=== PATIENT | male | born 1945 | race Caucasian/White ===

== ENCOUNTER 2019-03-13 11:55 | Emergency (ER) | payer MEDICARE, OTHER ==
[~2019-03-13] VITALS: Ht 175.3 cm; Wt 113.6 kg
[~2019-03-13 11:55] MED LIST: AMLO2.5T2 PO; ASPI-611 PO; ATOR40TA72 PO; DICL75TA5 PO; GLIM1TAB3 PO; HYDR-4353 PO; METF-438 PO; METO25TA6 PO; OMEP20TA5 PO; TAMS0.4C32 PO; TEST200V10 IM
[2019-03-13 12:57] LABS: BASOPHILS % (AUTO) 0.7 % (0-1); EOSINOPHILS # (AUTO) 0.2 X10'3 (0-0.9); EOSINOPHILS % (AUTO) 3.6 % (0-6); HEMOGLOBIN 15.4 g/dl (14.0-17.9); LYMPHOCYTES # (AUTO) 1.3 X10'3 (1.1-4.8); MEAN CORPUSCULAR HEMOGLOBIN 31.6 PG (27.0-31.0); MEAN CORPUSCULAR HGB CONC 33.5 g/dL (33.0-36.5); MEAN CORPUSCULAR VOLUME 94.3 FL (78-98); MEAN PLATELET VOLUME 7.6 FL (7.4-10.4); MONOCYTES # (AUTO) 0.5 X10'3 (0-0.9); MONOCYTES % (AUTO) 8.8 % (2-12); NEUTROPHILS # (AUTO) 3.4 X10'3 (1.8-7.7); NEUTROPHILS % (AUTO) 62.9 % (42-75); PLATELET COUNT 183 X10'3 (140-440); RED BLOOD COUNT 4.88 X10'6 (4.70-6.10); RED CELL DISTRIBUTION WIDTH 17.1 % (11.5-14.5); WHITE BLOOD COUNT 5.4 X10'3 (4.5-11.0)
[2019-03-13 13:08] LABS: PARTIAL THROMBOPLASTIN TIME 27 SECONDS (22-32)
[2019-03-13 13:16] LABS: ALANINE AMINOTRANSFERASE 44 U/L (12-78); ALBUMIN 3.7 G/DL (3.4-5.0); ALKALINE PHOSPHATASE 65 IU/L (46-116); ANION GAP 5 (8-16); ASPARTATE AMINO TRANSFERASE 25 U/L (10-37); BILIRUBIN,TOTAL 0.4 MG/DL (0.1-1.0); BLOOD UREA NITROGEN 19 MG/DL (7-18); BUN/CREATININE RATIO 14.8 (5.4-32.0); CALCIUM 9.3 MG/DL (8.5-10.1); CHLORIDE 107 MMOL/L (99-107); CREATININE 1.28 MG/DL (0.60-1.10); GLUCOSE 211 MG/DL (70-104); POTASSIUM 5.2 MMOL/L (3.5-5.1); SODIUM 143 MMOL/L (135-145); TOTAL CARBON DIOXIDE 30.7 MMOL/L (24-32); TOTAL PROTEIN 7.3 G/DL (6.4-8.2); eGFR 55 ML/MIN
[2019-03-13] MEDS ORDERED: normal saline 1000ml 1,000 ML IV ONE ×2 (14:55)
[2019-03-13 15:57] VITALS: BP 131/84
== END 2019-03-13 16:49 | disposition home or self-care (01) ==
LOC: ER 11:56
DX: I95.1 Orthostatic hypotension (principal); R42 Dizziness and giddiness; I25.10 Atherosclerotic heart disease of native coronary artery without angina pectoris; J44.9 Chronic obstructive pulmonary disease, unspecified; G47.30 Sleep apnea, unspecified; E11.9 Type 2 diabetes mellitus without complications; R79.1 Abnormal coagulation profile; Z98.61 Coronary angioplasty status; Z79.82 Long term (current) use of aspirin; Z79.84 Long term (current) use of oral hypoglycemic drugs; Z79.899 Other long term (current) drug therapy
CPT/HCPCS: 36415; 71045; 80053; 82948; 84484; 85025; 85610; 85730; 93005; 96360; 99284; J7030

== ENCOUNTER 2022-02-03 10:30 | Emergency (ER) | payer MEDICARE, OTHER ==
[~2022-02-03] VITALS: Ht 175.3 cm; Wt 109.2 kg
[~2022-02-03 10:30] MED LIST changes: +AMA1T PO; -GLIM1TAB3 PO; +LOP25T PO; -METO25TA6 PO; +OMEP20TA43 PO; -OMEP20TA5 PO; -TEST200V10 IM; +TEST200V33 IM
[2022-02-03 11:00] VITALS: BP 117/63
[2022-02-04] MEDS ORDERED: METO25TA6 PO (15:48)
[2022-02-04] MEDS ORDERED: CLON0.2T PO (15:48)
[2022-02-04] MEDS ORDERED: APIX5TAB3 PO (15:48)
[2022-02-04] MEDS ORDERED: ATOR-2 PO (15:48)
[2022-02-04] MEDS ORDERED: MAGN400T52 PO (15:48)
[2022-02-04] MEDS ORDERED: CYAN250010 PO (15:52)
[2022-02-04] MEDS ORDERED: FERR-119 PO (15:52)
[2022-02-04] MEDS ORDERED: OMEG-167 PO (15:52)
== END 2022-02-03 13:03 | disposition left against medical advice (07) ==
LOC: EDBD → ER 10:31
DX: R10.9 Unspecified abdominal pain (principal); Z53.21 Procedure and treatment not carried out due to patient leaving prior to being seen by health care provider

== ENCOUNTER 2022-02-08 10:43 | Day surgery (SDC) | payer MEDICARE, OTHER ==
[2022-02-04 12:06] LABS: BASOPHILS % (AUTO) 0.7 % (0-1); EOSINOPHILS # (AUTO) 0.2 X10'3 (0-0.9); EOSINOPHILS % (AUTO) 4.1 % (0-6); LYMPHOCYTES # (AUTO) 1.6 X10'3 (1.1-4.8); LYMPHOCYTES % (AUTO) 26.9 % (21-51); MEAN CORPUSCULAR HEMOGLOBIN 34.1 PG (27.0-31.0); MEAN CORPUSCULAR HGB CONC 33.8 g/dL (33.0-36.5); MEAN CORPUSCULAR VOLUME 100.9 FL (78-98); MEAN PLATELET VOLUME 7.5 FL (7.4-10.4); MONOCYTES # (AUTO) 0.5 X10'3 (0-0.9); MONOCYTES % (AUTO) 8.3 % (2-12); NEUTROPHILS # (AUTO) 3.6 X10'3 (1.8-7.7); PRE OP HEMATOCRIT 40.5 % (42.0-52.0); PRE OP HEMOGLOBIN 13.7 g/dL (14.0-17.9); PRE OP PLATELET COUNT 164 X10'3 (140-440); RED BLOOD COUNT 4.02 X10'6 (4.70-6.10); RED CELL DISTRIBUTION WIDTH 14.2 % (11.5-14.5)
[2022-02-04 12:22] LABS: ALBUMIN 3.4 G/DL (3.4-5.0); ALBUMIN/GLOBULIN RATIO 0.9 (1.1-1.5); ALKALINE PHOSPHATASE 60 IU/L (46-116); BLOOD UREA NITROGEN 22 MG/DL (7-18); BUN/CREATININE RATIO 16.4 (5.4-32.0); CALCIUM 9.2 MG/DL (8.5-10.1); CHLORIDE 102 MMOL/L (99-107); CREATININE 1.34 MG/DL (0.60-1.10); PRE OP ALT 46 U/L (30-65); PRE OP ANION GAP 7 (8-16); PRE OP AST 28 U/L (10-37); PRE OP BILIRUB, TOTAL 0.4 MG/DL (0.0-1.0); PRE OP POTASSIUM 5.3 MMOL/L (3.4-5.1); PRE OP SODIUM 140 MMOL/L (135-145); TOTAL CARBON DIOXIDE 30.7 MMOL/L (24-32); eGFR 52 ML/MIN
[2022-02-04 12:48] LABS: PRE OP GLUCOSE 232 MG/DL (70-104)
[2022-02-08] VITALS (9 sets, daily range): BP systolic 132–158; BP diastolic 66–93
[~2022-02-08] VITALS: Ht 175.3 cm; Wt 107.7 kg
[~2022-02-08 10:43] MED LIST changes: -AMLO2.5T2 PO; +APIX5TAB3 PO; -ASPI-611 PO; +ATOR-2 PO; -ATOR40TA72 PO; +CLON0.2T PO; +CYAN250010 PO; -DICL75TA5 PO; +DOCUMENT DATE & TIME OF BETA-BLOCKER PO ONE; +FERR-119 PO; -HYDR-4353 PO; -LOP25T PO; +MAGN400T52 PO; +METO25TA6 PO; +OMEG-167 PO; -TEST200V33 IM; +ceFAZolin inj. 2,000 MG in dextrose 5%-water 100 ML IV ONE; +famotidine 20mg tablet PO ONE; +ringers solution, lacted 1,000 ML IV SCH
--- NOTE | 2022-02-08 11:00 | NUR ---
PT AMBULATED TO PAS UNIT, PT HAS TACHYPNEA AND AUDIBLE WHEEZING. BILATERAL BASES ARE DIMINISHED. ANESTHESIA AT BEDSIDE, STAT BREATHING TREATMENT ORDERED PATIENT PREPPED FOR SURGERY, IV STARTED WITHOUT DIFFICULTY. BLOOD SUGAR CHECKED 161. DR LÓPEZ NOTIFIED, NO ORDERS RECEIVED PT EDUCATED ON THE IMPORTANCE OF NOT SMOKING, STATES HE DOES NOT FEEL LIKE QUITTING SMOKING HIS CIGARS AT THIS TIME. INCENTIVE SPIROMETRY EXPLAINED TO PT. PT WILL NEED REINFORCEMENT ON HOW TO PERFORM THIS TASK. PT HAS A CAREGIVER. SHE SHOULD BE EDUCATED ALSO. PT CHANGED HIS PHARMACY AT THE LAST MINUTE. DR PRADO NOTIFIED. PT IMPROVED AFTER BREATHING TREATMENT. O2 SATS INCREASED FROM 94 TO 96%
[2022-02-08] MEDS ORDERED: ipratropium/albuterol 3ml nebule NEB STA (11:25)
[2022-02-08] MEDS ORDERED: midazolam 1 mg/ML 2ml injection ONE (12:15)
[2022-02-08] MEDS ORDERED: LIDOcaine 2% (20mg/ml) 5ml vial ONE (12:15)
[2022-02-08] MEDS ORDERED: FENTANYL CITRATE/PF 50 MCG/1 ML VIAL ONE (12:15)
[2022-02-08] MEDS ORDERED: propofol inj 20 ML IV ONE (12:16)
[2022-02-08] MEDS ORDERED: glycopyrrolate 0.2mg/ml inj ONE (12:16)
[2022-02-08] MEDS ORDERED: BUPIVAcaine 0.5% inj/PF 30 ML ONE (12:39)
[2022-02-08] MEDS ORDERED: bacitracin 15gm ointment TP ONE (12:39)
[2022-02-08] MEDS ORDERED: LIDOcaine 1% 30ml preserv. free vial ONE (12:39)
[2022-02-08] MEDS ORDERED: rocuronium 10mg/ml inj IV ONE (12:54)
[2022-02-08] MEDS ORDERED: BUPIVAcaine 0.5% inj/PF 30 ml vial IJ ONE (13:15)
[2022-02-08] MEDS ORDERED: LIDOcaine 1% 30ml preserv. free vial IJ ONE (13:15)
[2022-02-08] MEDS ORDERED: ringers solution, lacted 1,000 ML IV SCH (13:30)
[2022-02-08] MEDS ORDERED: meperidine/PF 25mg/ml syringe IV PRN ×3 (13:30)
[2022-02-08] MEDS ORDERED: morphine 2 MG/ML inj. syringe IV PRN (13:30)
[2022-02-08] MEDS ORDERED: proCHLORperazine 10 MG/2 ml inj IV PRN (13:30)
[2022-02-08] MEDS ORDERED: ondansetron/PF 4mg/2ml inj IV PRN (13:30)
[2022-02-08] MEDS ORDERED: morphine 4 MG/ML inj SYRINge IV PRN (13:30)
[2022-02-08] MEDS ORDERED: oxyCODONE/APAP 5-325mg tablet PO PRN (13:40)
--- NOTE | 2022-02-08 13:45 | NUR ---
PT ARRIVED TO VIA [facility] ACCOMPANIED BY DR. MEYERS-ANESTHESIA REPORT GIVEN, VSS, PT WAKING UP, DENIES PAIN, 1 BANDAID TO [facility]-CDI.
--- NOTE | 2022-02-08 15:15 | NUR ---
PT UP AND DRESSED, WAITING FOR RIDE, VSS, PAIN MINIMAL-GIVEN 1 PERCOCET FOR RIDE HOME, DRSG-CDI, PIV-D/CD-CANULA INTACT, GIVEN D/C INSTRUCTIONS-ALL QUESTIONS ANSWERED, TAKEN VIA W/C WITH ALL BELONGINGS TO VEHICLE FOR TRANSPORT HOME.
== END 2022-02-08 15:15 | disposition home or self-care (01) ==
LOC: PAS 10:43 → EDBD 14:15 → PAS 15:15
PROVIDERS: ATTEND Surgery
DX: K42.9 Umbilical hernia without obstruction or gangrene (principal); F31.9 Bipolar disorder, unspecified; K21.9 Gastro-esophageal reflux disease without esophagitis; M19.90 Unspecified osteoarthritis, unspecified site; I25.2 Old myocardial infarction; I10 Essential (primary) hypertension; F17.210 Nicotine dependence, cigarettes, uncomplicated; E11.9 Type 2 diabetes mellitus without complications; Z79.899 Other long term (current) drug therapy; Z98.890 Other specified postprocedural states; Z72.89 Other problems related to lifestyle
CPT/HCPCS: 36415; 49585; 71046; 80053; 82948; 85025; 94640; C1781; J0690; J2250; J2704; J3010; J3490; J7030; J7060; J7120; S0020; Z7506; Z7508; Z7512; A4215; A4618; A7000

== ENCOUNTER 2022-07-04 10:20 | Inpatient (IN) | payer MEDICARE, OTHER ==
[~2022-07-04] VITALS: Ht 175.3 cm; Wt 109.1 kg
[~2022-07-04 10:20] MED LIST changes: -DOCUMENT DATE & TIME OF BETA-BLOCKER PO ONE; -ceFAZolin inj. 2,000 MG in dextrose 5%-water 100 ML IV ONE; -famotidine 20mg tablet PO ONE; -ringers solution, lacted 1,000 ML IV SCH
[2022-07-04 11:13] LABS: BASOPHILS % (AUTO) 0.4 % (0-1); EOSINOPHILS # (AUTO) 0.2 X10'3 (0-0.9); EOSINOPHILS % (AUTO) 4.1 % (0-6); HEMATOCRIT 40.6 % (42.0-52.0); HEMOGLOBIN 13.8 g/dl (14.0-17.9); LYMPHOCYTES # (AUTO) 1.1 X10'3 (1.1-4.8); LYMPHOCYTES % (AUTO) 18.4 % (21-51); MEAN CORPUSCULAR HEMOGLOBIN 33.6 PG (27.0-31.0); MEAN CORPUSCULAR VOLUME 98.9 FL (78-98); MEAN PLATELET VOLUME 7.5 FL (7.4-10.4); MONOCYTES # (AUTO) 0.6 X10'3 (0-0.9); MONOCYTES % (AUTO) 9.6 % (2-12); NEUTROPHILS # (AUTO) 3.9 X10'3 (1.8-7.7); NEUTROPHILS % (AUTO) 67.5 % (42-75); PLATELET COUNT 192 X10'3 (140-440); RED BLOOD COUNT 4.11 X10'6 (4.70-6.10); RED CELL DISTRIBUTION WIDTH 14.4 % (11.5-14.5); WHITE BLOOD COUNT 5.8 X10'3 (4.5-11.0)
[2022-07-04 11:25] LABS: ALANINE AMINOTRANSFERASE 38 U/L (12-78); ALBUMIN 3.3 G/DL (3.4-5.0); ALBUMIN/GLOBULIN RATIO 0.8 (1.1-1.5); ALKALINE PHOSPHATASE 87 IU/L (46-116); ANION GAP 8 (8-16); ASPARTATE AMINO TRANSFERASE 22 U/L (10-37); BILIRUBIN,TOTAL 0.5 MG/DL (0.1-1.0); BLOOD UREA NITROGEN 24 MG/DL (7-18); BUN/CREATININE RATIO 18.2 (10.0-20.0); CALCIUM 8.9 MG/DL (8.5-10.1); CHLORIDE 101 MMOL/L (99-107); CREATININE 1.32 MG/DL (0.60-1.10); GLUCOSE 290 MG/DL (70-104); POTASSIUM 5.1 MMOL/L (3.5-5.1); SODIUM 137 MMOL/L (135-145); TOTAL CARBON DIOXIDE 27.9 MMOL/L (24-32); TOTAL PROTEIN 7.6 G/DL (6.4-8.2); eGFR 53 ML/MIN
[2022-07-04] MEDS ORDERED: methylPREDNISolone sod succ 125mg/2ml vial IV ONE (11:35)
[2022-07-04] MEDS ORDERED: ipratropium/albuterol 3ml nebule NEB ONE (11:35)
--- NOTE | 2022-07-04 11:40 | NUR ---
RN PAGED RT TO GIVE RT TX.
--- NOTE | 2022-07-04 12:00 | NUR ---
RT AT BEDSIDE GIVING TX. RN WILL START IV ONCE ITS COMPLETE.
--- NOTE | 2022-07-04 12:37 | NUR ---
PER RT REPORT PT NEEDS 2L O2 SUPPORT D/T ABG RESULTS.
[2022-07-04] MEDS ORDERED: iohexol 350MG/ML 100ml bottle IV ONE (12:58)
[2022-07-04 13:52] LABS: ABG BASE EXCESS 0.4 mmol/L (-2.0-2.0); ABG HCO3 25.4 mmol/L (22.0-26.0); ABG OXYGEN SATURATION 92.8 % (94-97); ABG PCO2 (T) 42.7 mmHg (35.0-48.0); ABG PO2 (T) 65.6 mmHg (75.0-100.0); ALLEN'S TEST POSITIVE; FCOHb 2.7 % (0.0-3.9); FMetHb 0.3 % (0.0-1.5); TOTAL HEMOGLOBIN 13.6 G/dl (14.0-17.9)
[2022-07-04] MEDS ORDERED: azithromycin/NS 500mg/250ml 250 ML IV ONE ×2 (14:35→18:10)
[2022-07-04] MEDS ORDERED: CefTRIAXone 2gm/D5W 50ml BAG 50 ML IV ONE (14:35)
[2022-07-04 14:43] VITALS: BP 121/85
--- NOTE | 2022-07-04 14:46 | NUR ---
PER ALBINO PA PT WILL BE ADMITTED D/T HIS O2 IS LABILE WENT DOWN TO 88%. PER ALBINO APPLY 2 L BNC. RN APPLIED O2
[2022-07-04] MEDS ORDERED: HYDR-3972 PO (15:44)
[2022-07-04] MEDS ORDERED: ondansetron/PF 4mg/2ml inj IV PRN (15:45)
[2022-07-04] MEDS ORDERED: magnesium Cl slow-release 64mg tablet PO PRN (15:45)
[2022-07-04] MEDS ORDERED: acetaminophen 325mg tablet PO PRN (15:45)
[2022-07-04] MEDS ORDERED: magnesium 2GM in 50ml NS 50 ML IV PRN (15:45)
[2022-07-04] MEDS ORDERED: potassium Cl 20 mEq SR tablet PO PRN ×2 (15:45)
[2022-07-04] MEDS ORDERED: normal saline 1000ml 1,000 ML IV SCH (15:45)
[2022-07-04] MEDS ORDERED: potassium Cl 40MEQ/1/2NS 520ml 520 ML IV PRN (15:45)
[2022-07-04] MEDS ORDERED: magnesium 4gm in 100ml NS 100 ML IV PRN (15:45)
[2022-07-04] MEDS ORDERED: GLIM2TAB6 PO (15:48)
[2022-07-04] MEDS ORDERED: ATRNS (15:49)
[2022-07-04] MEDS ORDERED: ALBU17AE26 IH (15:50)
--- NOTE | 2022-07-04 18:23 | NUR ---
PT WANTS TO LEAVE AMA. RN PAGED DR NASCIMENTO MESSAGE AND PAGE TO CALL BACK
--- NOTE | 2022-07-04 18:38 | NUR ---
Pt left AMA; Dr. Coronel paged by previous RN Summer, prior to pt departure from ED with no call back; Pt educated on risks of leaving versus benefits of admission for further treatment; Pt verbalizes understanding, but still requesting to leave; Pt A&O x4; GCS 15; Capable of making medical decisions for himself; IV discontinued per pt request; Catheter intact; Dry, gauze dressing applied; Pt RA sat on ambulation 91; Pt ambulatory to ED lobby with no disturbance in gait; Pt left with all personal belongings and pt caregiver providing transportation
--- NOTE | 2022-07-04 18:44 | NUR ---
Dr. Coronel calls back at this time, following pt departure from ED; Dr. Coronel aware of pt leaving AMA and verbalizes understanding and acceptance; AMA form signed by pt and this RN as witness; Form placed with paper charts
[2022-07-04] MEDS ORDERED: ipratropium/albuterol 3ml nebule NEB SCH (19:00)
[2022-07-04] MEDS ORDERED: methylPREDNISolone sod succ/PF 40mg inj. IV SCH (20:00)
[2022-07-04] MEDS ORDERED: K and/or MAG REPLACEMENT MC SCH (20:00)
[2022-07-05] MEDS ORDERED: MESSAGE TO NURSING PO SCH (13:00)
[2022-07-05] MEDS ORDERED: CefTRIAXone/D5W-Rocephin 1gm 50 ML IV SCH (16:00)
== END 2022-07-04 18:44 | disposition left against medical advice (07) | DRG 193 ==
LOC: EDBD 10:21 → ER 10:21 → MERGE 10:21 → ED HOLD 15:49
PROVIDERS: ADMIT Internal Medicine; ATTEND Internal Medicine
PROC: B32T1ZZ Computerized Tomography (CT Scan) of Left Pulmonary Artery using Low Osmolar Contrast (ICD-10-PCS; principal; 2022-07-04)
PROC: B3201ZZ Computerized Tomography (CT Scan) of Thoracic Aorta using Low Osmolar Contrast (ICD-10-PCS; 2022-07-04)
PROC: B32S1ZZ Computerized Tomography (CT Scan) of Right Pulmonary Artery using Low Osmolar Contrast (ICD-10-PCS; 2022-07-04)
DX: J18.9 Pneumonia, unspecified organism (principal); J96.01 Acute respiratory failure with hypoxia; J44.1 Chronic obstructive pulmonary disease with (acute) exacerbation; J44.0 Chronic obstructive pulmonary disease with (acute) lower respiratory infection; E78.5 Hyperlipidemia, unspecified; I48.91 Unspecified atrial fibrillation; E11.9 Type 2 diabetes mellitus without complications; Z96.641 Presence of right artificial hip joint; Z53.29 Procedure and treatment not carried out because of patient's decision for other reasons; K21.9 Gastro-esophageal reflux disease without esophagitis; I10 Essential (primary) hypertension; I25.10 Atherosclerotic heart disease of native coronary artery without angina pectoris; N40.0 Benign prostatic hyperplasia without lower urinary tract symptoms; Z79.84 Long term (current) use of oral hypoglycemic drugs; Z87.891 Personal history of nicotine dependence; Z95.5 Presence of coronary angioplasty implant and graft; Z79.899 Other long term (current) drug therapy
CPT/HCPCS: 36415; 36600; 71046; 71275; 80053; 82803; 83605; 83880; 84145; 84484; 85018; 85025; 87040; 87077; 87186; 94640; 94760; 99285; A4615; G0378; J0696; J2930; J3490; J7030; Q9967

== ENCOUNTER 2023-06-17 21:13 | Inpatient (IN) | payer MEDICARE, OTHER ==
[~2023-06-17] VITALS: Ht 175.3 cm; Wt 107.3 kg
[~2023-06-17 21:13] MED LIST changes: +ALBU17AE26 IH; -AMA1T PO; +ATRNS; +CLOP75TA33 PO; +GLIM2TAB6 PO; +HYDR-3972 PO; -OMEP20TA43 PO; +OMEP40CA21 PO
[2023-06-17] MEDS: nitroGLYCERIN 0.4mg SUBLingual tab SL ONE (21:34)
[2023-06-17] MEDS: morphine 4 MG/ML inj SYRINge IV ONE ×2 (21:38→22:05)
[2023-06-17 21:40] LABS: BASOPHILS % (AUTO) 0.7 % (0-1); EOSINOPHILS # (AUTO) 0.2 X10'3 (0-0.9); EOSINOPHILS % (AUTO) 3.3 % (0-6); HEMATOCRIT 39.1 % (42.0-52.0); HEMOGLOBIN 13.2 g/dl (14.0-17.9); LYMPHOCYTES # (AUTO) 2.2 X10'3 (1.1-4.8); LYMPHOCYTES % (AUTO) 32.9 % (21-51); MEAN CORPUSCULAR HEMOGLOBIN 31.3 PG (27.0-31.0); MEAN CORPUSCULAR HGB CONC 33.8 g/dL (33.0-36.5); MEAN CORPUSCULAR VOLUME 92.4 FL (78-98); MEAN PLATELET VOLUME 7.4 FL (7.4-10.4); MONOCYTES # (AUTO) 0.6 X10'3 (0-0.9); MONOCYTES % (AUTO) 9.1 % (2-12); NEUTROPHILS # (AUTO) 3.6 X10'3 (1.8-7.7); PLATELET COUNT 211 X10'3 (140-440); RED BLOOD COUNT 4.23 X10'6 (4.70-6.10); RED CELL DISTRIBUTION WIDTH 15.6 % (11.5-14.5); WHITE BLOOD COUNT 6.6 X10'3 (4.5-11.0)
[2023-06-17] MEDS ORDERED: pantoprazole 40 MG vial IV SCH (22:00)
[2023-06-17] MEDS: ondansetron/PF 4mg/2ml inj IV ONE (22:05)
[2023-06-17] MEDS: pantoprazole 40 MG vial IV ONE (22:10)
[2023-06-17] MEDS ORDERED: nitroGLYCERIN 0.4mg SUBLingual tab SL PRN (22:15)
[2023-06-17 22:40] LABS: ANION GAP 9 (8-16); BLOOD UREA NITROGEN 28 MG/DL (7-18); BUN/CREATININE RATIO 18.8 (10.0-20.0); CALCIUM 8.9 MG/DL (8.5-10.1); CHLORIDE 105 MMOL/L (99-107); CREATININE 1.49 MG/DL (0.60-1.10); GLUCOSE 254 MG/DL (70-104); POTASSIUM 4.5 MMOL/L (3.5-5.1); PRO BRAIN NATRIURETIC PEPTIDE 237 PG/ML (0-450); SODIUM 140 MMOL/L (135-145); TOTAL CARBON DIOXIDE 26.2 MMOL/L (24-32); eCRCL 43 ML/MIN; eGFR 46 ML/MIN
[2023-06-17] MEDS ORDERED: iohexol 350MG/ML 100ml bottle IV ONE (23:13)
[2023-06-17 23:30] LABS: ALANINE AMINOTRANSFERASE 32 U/L (12-78); ALBUMIN/GLOBULIN RATIO 0.8 (1.1-1.5); ALKALINE PHOSPHATASE 61 IU/L (46-116); ASPARTATE AMINO TRANSFERASE 18 U/L (10-37); BILIRUBIN,TOTAL 0.3 MG/DL (0.1-1.0); LIPASE 36 U/L (16-77); TOTAL PROTEIN 7.1 G/DL (6.4-8.2)
[2023-06-17 23:33] LABS: ALBUMIN 3.1 G/DL (3.4-5.0)
[2023-06-17 23:35] LABS: BILIRUBIN,DIRECT 0.1 MG/DL (0-0.3)
[2023-06-18] VITALS (26 sets, daily range): BP systolic 111–165; BP diastolic 9–100; PULSE 71–103; RESP 12–18; O2SAT 94–99
[2023-06-18] MEDS ORDERED: acetaminophen 325mg tablet PO PRN ×3 (01:45→05:15)
[2023-06-18] MEDS ORDERED: potassium Cl 40MEQ/1/2NS 520ml 520 ML IV PRN (01:45)
[2023-06-18] MEDS ORDERED: ondansetron/PF 4mg/2ml inj IV PRN (01:45)
[2023-06-18] MEDS ORDERED: potassium Cl 20 mEq SR tablet PO PRN ×2 (01:45)
[2023-06-18] MEDS ORDERED: PERFLUTREN PROTEIN-A MICROSPHR (Optison) 0.22 MG/ML 3ML VIAL IV PRN (01:45)
[2023-06-18] MEDS ORDERED: magnesium Cl slow-release 64mg tablet PO PRN (01:45)
[2023-06-18] MEDS ORDERED: morphine 2 MG/ML inj. syringe IV PRN (01:45)
[2023-06-18] MEDS ORDERED: ipratropium/albuterol 3ml nebule NEB PRN ×2 (01:45)
[2023-06-18] MEDS: heparin 10,000 units/1 ML INJ IV ONE (02:21)
[2023-06-18] MEDS: heparin 25,000 UNIT/250ml bag 250 ML IV PRN (02:22)
[2023-06-18 02:27] LABS: BASOPHILS % (AUTO) 0.4 % (0-1); EOSINOPHILS % (AUTO) 0.6 % (0-6); HEMATOCRIT 37.9 % (42.0-52.0); HEMOGLOBIN 12.8 g/dl (14.0-17.9); LYMPHOCYTES # (AUTO) 0.6 X10'3 (1.1-4.8); LYMPHOCYTES % (AUTO) 10.9 % (21-51); MEAN CORPUSCULAR HEMOGLOBIN 31.1 PG (27.0-31.0); MEAN CORPUSCULAR HGB CONC 33.7 g/dL (33.0-36.5); MEAN CORPUSCULAR VOLUME 92.5 FL (78-98); MEAN PLATELET VOLUME 7.3 FL (7.4-10.4); MONOCYTES # (AUTO) 0.3 X10'3 (0-0.9); MONOCYTES % (AUTO) 5.7 % (2-12); NEUTROPHILS # (AUTO) 4.7 X10'3 (1.8-7.7); NEUTROPHILS % (AUTO) 82.4 % (42-75); PLATELET COUNT 156 X10'3 (140-440); RED CELL DISTRIBUTION WIDTH 15.3 % (11.5-14.5); WHITE BLOOD COUNT 5.7 X10'3 (4.5-11.0)
[2023-06-18] MEDS: [UNRECOGNIZED DRUG - REMARK] IV ONE (02:29)
[2023-06-18] MEDS ORDERED: heparin, porcine-25,000 units/D5-250ml premix IV ONE (02:30)
[2023-06-18] MEDS ORDERED: tirofiban 12.5mg in NS 250mL 250 ML IV ONE (02:36)
[2023-06-18] MEDS ORDERED: iohexol 350 MG/ML 50ML vial IV ONE (02:38)
[2023-06-18] MEDS ORDERED: LIDOcaine 1% 30ml preserv. free vial ONE (02:38)
[2023-06-18] MEDS ORDERED: fentaNYL/PF 50MCG/1 ML 2ML syringe ONE (02:38)
[2023-06-18] MEDS ORDERED: midazolam 1 mg/ML 2ml injection ONE (02:38)
[2023-06-18] MEDS ORDERED: heparin 1,000unit/ml 10ml vial 0 ML ONE (02:39)
[2023-06-18] MEDS ORDERED: atropine 0.1mg/ml 10ml syringe ONE (02:39)
[2023-06-18] MEDS ORDERED: heparin 25,000 UNIT/250ml bag 0 ML IV ONE (02:39)
[2023-06-18] MEDS ORDERED: epiNEPHrine 0.1mg/ml 10ml syringe ONE (02:40)
[2023-06-18] MEDS ORDERED: iohexol 350MG/ML 100ml bottle IV ONE (02:40)
[2023-06-18 02:59] LABS: APTT 28 SECONDS (22-32); INR 1.1 INR; PROTHROMBIN TIME 11.4 SECONDS (9.0-12.0)
[2023-06-18 03:04] LABS: MAGNESIUM 1.2 MG/DL (1.5-2.4)
[2023-06-18] MEDS ORDERED: diphenhydrAMINE 50 mg/ml inj ONE (03:10)
[2023-06-18] MEDS ORDERED: nitroGLYCERIN-Tridil 50MG/D5W 250 ML IV ONE (03:45)
[2023-06-18] MEDS ORDERED: HYDROmorphone 1 mg/ml syringe ONE (04:03)
[2023-06-18] MEDS ORDERED: clopidogrel 300mg tablet ONE (04:09)
[2023-06-18 04:16] LABS: ALANINE AMINOTRANSFERASE 28 U/L (12-78); ALBUMIN 3.3 G/DL (3.4-5.0); ALBUMIN/GLOBULIN RATIO 0.8 (1.1-1.5); ALKALINE PHOSPHATASE 71 IU/L (46-116); ANION GAP 10 (8-16); ASPARTATE AMINO TRANSFERASE 43 U/L (10-37); BILIRUBIN,TOTAL 0.2 MG/DL (0.1-1.0); BLOOD UREA NITROGEN 25 MG/DL (7-18); BUN/CREATININE RATIO 16.8 (10.0-20.0); CALCIUM 8.5 MG/DL (8.5-10.1); CHLORIDE 102 MMOL/L (99-107); CREATININE 1.49 MG/DL (0.60-1.10); GLUCOSE 302 MG/DL (70-104); PHOSPHORUS 4.1 MG/DL (2.3-4.5); SODIUM 137 MMOL/L (135-145); TOTAL CARBON DIOXIDE 25.2 MMOL/L (24-32); TOTAL PROTEIN 7.3 G/DL (6.4-8.2); eCRCL 43 ML/MIN; eGFR 46 ML/MIN
[2023-06-18 04:21] LABS: POTASSIUM 6.1 MMOL/L (3.5-5.1)
[2023-06-18] MEDS ORDERED: dexmedetomidine inj. 400 MCG in normal saline 100ml IV soln 96 ML IV PRN (04:30)
[2023-06-18] MEDS ORDERED: HYDROcodone/acetaminophen 10/325mg tab PO PRN (05:05)
[2023-06-18] MEDS: normal saline 1000ml 1,000 ML IV SCH (05:10)
[2023-06-18] MEDS: magnesium 4gm in 100ml NS 100 ML IV PRN (05:10)
[2023-06-18] MEDS ORDERED: proCHLORperazine 10 MG/2 ml inj IV PRN (05:15)
[2023-06-18] MEDS ORDERED: morphine 4 MG/ML inj SYRINge IV PRN (05:15)
[2023-06-18] MEDS ORDERED: nitroGLYCERIN 0.4mg SUBLingual tab SL PRN (05:15)
[2023-06-18] MEDS ORDERED: morphine 10mg/ml inj. IV PRN (05:15)
[2023-06-18] MEDS ORDERED: OXAZEpam 15mg capsule PO PRN (05:15)
[2023-06-18] MEDS: nitroGLYCERIN-Tridil 50MG/D5W 250 ML IV SCH (05:21)
[2023-06-18] MEDS: tirofiban 12.5mg in NS 250mL IV SCH (05:29)
[2023-06-18] MEDS ORDERED: albuterol 2.5 MG/3 ML nebule NEB PRN (05:30)
[2023-06-18] MEDS ORDERED: calcium gluconate inj. 2 GM in normal saline 100ml IV soln 100 ML IV ONE (06:30)
[2023-06-18] MEDS: calcium gluconate inj. 2 GM in normal saline 100ml IV soln 80 ML IV ONE (07:42)
[2023-06-18] MEDS: metoprolol succinate 25mg (24-HOUR) SR. Tablet PO SCH (07:42)
[2023-06-18] MEDS: sodium polystyrene sulfonate 15gm/60ml oral suspension PO ONE (07:42)
[2023-06-18] MEDS ORDERED: clopidogrel 75mg tablet PO SCH (08:00)
[2023-06-18] MEDS ORDERED: non-formulary drug (Metoprolol Tartrate 1 TAB) PO SCH (08:00)
[2023-06-18] MEDS: docusate sod 100mg capsule PO SCH (08:00)
[2023-06-18] MEDS: cloNIDine 0.1 mg tablet PO SCH (08:00)
[2023-06-18] MEDS: amLODIPine 2.5mg tablet PO SCH (08:00)
[2023-06-18] MEDS: K and/or MAG REPLACEMENT MC SCH (08:00)
[2023-06-18] MEDS: clopidogrel 75mg tablet PO SCH (08:00)
[2023-06-18] MEDS: aspirin 81mg tab.chew PO SCH (08:00)
[2023-06-18] MEDS: CefTRIAXone/D5W-Rocephin 1gm 50 ML IV SCH (09:08)
[2023-06-18] MEDS: insulin regular, human U-100 3ml vial - multi-dose IV ONE (09:10)
[2023-06-18] MEDS: azithromycin/NS 500mg/250ml 250 ML IV SCH (09:50)
[2023-06-18] MEDS: MESSAGE TO NURSING IV ONE (10:52)
[2023-06-18] MEDS: ringers solution, lacted 1,000 ML IV ONE (11:09)
[2023-06-18] MEDS: glimepiride 1 MG tablet PO SCH (12:19)
[2023-06-18] MEDS: magnesium 2GM in 50ml NS 50 ML IV PRN (12:39)
[2023-06-18 13:23] LABS: ANION GAP 8 (8-16); BLOOD UREA NITROGEN 23 MG/DL (7-18); BUN/CREATININE RATIO 17.4 (10.0-20.0); CALCIUM 8.4 MG/DL (8.5-10.1); CHLORIDE 100 MMOL/L (99-107); CREATININE 1.32 MG/DL (0.60-1.10); GLUCOSE 292 MG/DL (70-104); POTASSIUM 4.6 MMOL/L (3.5-5.1); SODIUM 133 MMOL/L (135-145); TOTAL CARBON DIOXIDE 25.1 MMOL/L (24-32); eCRCL 48 ML/MIN; eGFR 53 ML/MIN
[2023-06-18 13:27] LABS: HEMOGLOBIN A1C 7.4 % (4.5-6.2)
[2023-06-18] MEDS: insulin Lispro (HumaLOG) vial - multi-dose SQ SCH (14:38)
[2023-06-18] MEDS ORDERED: HYDR-3964 PO (15:01)
[2023-06-18] MEDS ORDERED: REVE175V NEB (15:01)
[2023-06-18] MEDS ORDERED: ALLO100T PO (15:01)
[2023-06-18] MEDS ORDERED: GLIP5TAB23 PO (15:01)
[2023-06-18] MEDS ORDERED: GABA300C PO (15:03)
[2023-06-18] MEDS ORDERED: FLO0.4C PO (15:03)
[2023-06-18] MEDS ORDERED: FENO145T25 PO (15:05)
[2023-06-18] MEDS ORDERED: polyethylene glycol 3350 17gm powd pack PO PRN (15:15)
[2023-06-18] MEDS ORDERED: heparin 25,000 UNIT/250ml bag 250 ML IV PRN (19:02)
[2023-06-18] MEDS: heparin 10,000 units/1 ML INJ IV PRN (19:06)
[2023-06-18] MEDS: atorvastatin 20mg tablet PO SCH (19:55)
[2023-06-18] MEDS: insulin glargine (Lantus) pen - multi-dose SQ SCH (19:57)
[2023-06-18] MEDS: cyclobenzaprine 10mg tablet PO PRN (20:39)
[2023-06-18] MEDS: HYDROcodone/acetaminophen 10/325mg tab PO PRN (20:39)
[2023-06-18] MEDS: IPRATROPIUM Bromide 0.06% Nas 1 SPRAY BOTTLE NS SCH (21:00)
[2023-06-18] MEDS ORDERED: nitroGLYCERIN-Tridil 50MG/D5W 250 ML IV SCH (22:40)
[2023-06-19] VITALS (19 sets, daily range): BP systolic 101–150; BP diastolic 34–91; PULSE 62–83; RESP 6–20; TEMP 97.1; O2SAT 92–99
[2023-06-19 00:24] LABS: BASOPHILS % (AUTO) 0.5 % (0-1); EOSINOPHILS # (AUTO) 0.2 X10'3 (0-0.9); EOSINOPHILS % (AUTO) 3.2 % (0-6); HEMATOCRIT 30.7 % (42.0-52.0); HEMOGLOBIN 10.5 g/dl (14.0-17.9); LYMPHOCYTES # (AUTO) 1.3 X10'3 (1.1-4.8); LYMPHOCYTES % (AUTO) 20.5 % (21-51); MEAN CORPUSCULAR HEMOGLOBIN 31.4 PG (27.0-31.0); MEAN CORPUSCULAR HGB CONC 34.2 g/dL (33.0-36.5); MEAN CORPUSCULAR VOLUME 91.6 FL (78-98); MEAN PLATELET VOLUME 7.4 FL (7.4-10.4); MONOCYTES # (AUTO) 0.5 X10'3 (0-0.9); MONOCYTES % (AUTO) 8.7 % (2-12); NEUTROPHILS # (AUTO) 4.2 X10'3 (1.8-7.7); NEUTROPHILS % (AUTO) 67.1 % (42-75); PLATELET COUNT 164 X10'3 (140-440); RED BLOOD COUNT 3.35 X10'6 (4.70-6.10); WHITE BLOOD COUNT 6.3 X10'3 (4.5-11.0)
[2023-06-19 00:38] LABS: ALBUMIN 2.5 G/DL (3.4-5.0); ANION GAP 10 (8-16); BLOOD UREA NITROGEN 19 MG/DL (7-18); BUN/CREATININE RATIO 16.5 (10.0-20.0); CALCIUM 8.1 MG/DL (8.5-10.1); CHLORIDE 105 MMOL/L (99-107); CREATININE 1.15 MG/DL (0.60-1.10); GLUCOSE 152 MG/DL (70-104); MAGNESIUM 2.1 MG/DL (1.5-2.4); POTASSIUM 4.1 MMOL/L (3.5-5.1); SODIUM 139 MMOL/L (135-145); TOTAL CARBON DIOXIDE 24.3 MMOL/L (24-32); eCRCL 56 ML/MIN; eGFR 62 ML/MIN
[2023-06-19] MEDS: MESSAGE TO NURSING IV ONE ×2 (01:02→12:10)
[2023-06-19] MEDS ORDERED: LIDOcaine 1% 30ml preserv. free vial ONE (09:44)
[2023-06-19] MEDS: magnesium hydroxide 30ml (MOM) UD suspension PO PRN (16:37)
[2023-06-19] MEDS: HYDROcodone/acetaminophen 10/325mg tab PO PRN (20:54)
[2023-06-19] MEDS ORDERED: non-formulary drug (Atorvastatin Calcium 1 TAB) PO SCH (21:00)
[2023-06-20 03:09] VITALS: PULSE 64; RESP 6; O2SAT 94
[2023-06-20 03:36] VITALS: BP 120/78; PULSE 77; RESP 16; TEMP 98.6; O2SAT 94
[2023-06-20 07:00] VITALS: BP 109/79; PULSE 68; RESP 20; TEMP 97.1; O2SAT 97
[2023-06-20] MEDS: allopurinol 100mg tablet PO SCH (07:49)
[2023-06-20] MEDS: fenofibrate 145mg tablet PO SCH (07:52)
[2023-06-20 08:00] VITALS: RESP 16; O2SAT 97
[2023-06-20 09:03] LABS: BASOPHILS % (AUTO) 0.4 % (0-1); EOSINOPHILS # (AUTO) 0.2 X10'3 (0-0.9); HEMOGLOBIN 11.4 g/dl (14.0-17.9); LYMPHOCYTES # (AUTO) 1.5 X10'3 (1.1-4.8); LYMPHOCYTES % (AUTO) 22.2 % (21-51); MEAN CORPUSCULAR HEMOGLOBIN 31.2 PG (27.0-31.0); MEAN CORPUSCULAR HGB CONC 33.5 g/dL (33.0-36.5); MEAN CORPUSCULAR VOLUME 93.2 FL (78-98); MEAN PLATELET VOLUME 7.9 FL (7.4-10.4); MONOCYTES # (AUTO) 0.6 X10'3 (0-0.9); MONOCYTES % (AUTO) 9.8 % (2-12); NEUTROPHILS # (AUTO) 4.3 X10'3 (1.8-7.7); NEUTROPHILS % (AUTO) 64.6 % (42-75); PLATELET COUNT 179 X10'3 (140-440); RED BLOOD COUNT 3.65 X10'6 (4.70-6.10); RED CELL DISTRIBUTION WIDTH 15.4 % (11.5-14.5); WHITE BLOOD COUNT 6.6 X10'3 (4.5-11.0)
[2023-06-20 09:30] LABS: ALBUMIN 2.7 G/DL (3.4-5.0); ANION GAP 3 (8-16); BLOOD UREA NITROGEN 23 MG/DL (7-18); BUN/CREATININE RATIO 17.3 (10.0-20.0); CALCIUM 8.9 MG/DL (8.5-10.1); CHLORIDE 103 MMOL/L (99-107); CHOL/HDL RATIO 2.9 (0.00-4.99); CHOLESTEROL 131 MG/DL (0-200); CREATININE 1.33 MG/DL (0.60-1.10); GLUCOSE 116 MG/DL (70-104); HDL CHOLESTEROL 45 MG/DL (35-60); LDL CHOLESTEROL 65 MG/DL (50-100); POTASSIUM 4.8 MMOL/L (3.5-5.1); SODIUM 136 MMOL/L (135-145); TOTAL CARBON DIOXIDE 30.1 MMOL/L (24-32); TRIGLYCERIDES 123 MG/DL (20-135); eCRCL 48 ML/MIN; eGFR 52 ML/MIN
[2023-06-20 11:00] VITALS: BP 124/76; PULSE 59; RESP 16; TEMP 98.2; O2SAT 92
[2023-06-20] MEDS ORDERED: ASPI81TA52 PO (12:37)
[2023-06-20] MEDS ORDERED: APIX2.5T PO ×2 (12:37→12:50)
[2023-06-20] MEDS ORDERED: CLOP75TA33 PO (12:37)
[2023-06-20] MEDS ORDERED: CLOP-32 PO (12:50)
[2023-06-20] MEDS ORDERED: ASPI-1265 PO (12:50)
== END 2023-06-20 13:30 | disposition home or self-care (01) | DRG 321 ==
LOC: ER 21:14 → ED HOLD 06-18 01:49 → CICU 2S 06-18 03:23 → PCU 3S 06-19 23:19
PROVIDERS: ADMIT Internal Medicine; ATTEND Family Medicine
PROC: B32T1ZZ Computerized Tomography (CT Scan) of Left Pulmonary Artery using Low Osmolar Contrast (ICD-10-PCS; 2023-06-17)
PROC: B3201ZZ Computerized Tomography (CT Scan) of Thoracic Aorta using Low Osmolar Contrast (ICD-10-PCS; 2023-06-17)
PROC: B32S1ZZ Computerized Tomography (CT Scan) of Right Pulmonary Artery using Low Osmolar Contrast (ICD-10-PCS; 2023-06-17)
PROC: 027034Z Dilation of Coronary Artery, One Artery with Drug-eluting Intraluminal Device, Percutaneous Approach (ICD-10-PCS; principal; 2023-06-18)
PROC: 4A023N7 Measurement of Cardiac Sampling and Pressure, Left Heart, Percutaneous Approach (ICD-10-PCS; 2023-06-18)
PROC: B2111ZZ Fluoroscopy of Multiple Coronary Arteries using Low Osmolar Contrast (ICD-10-PCS; 2023-06-18)
PROC: B2151ZZ Fluoroscopy of Left Heart using Low Osmolar Contrast (ICD-10-PCS; 2023-06-18)
PROC: B41F1ZZ Fluoroscopy of Right Lower Extremity Arteries using Low Osmolar Contrast (ICD-10-PCS; 2023-06-18)
PROC: 02PA3DZ Removal of Intraluminal Device from Heart, Percutaneous Approach (ICD-10-PCS; 2023-06-18)
DX: T82.855A Stenosis of coronary artery stent, initial encounter (principal); I21.09 ST elevation (STEMI) myocardial infarction involving other coronary artery of anterior wall; N17.0 Acute kidney failure with tubular necrosis; J44.1 Chronic obstructive pulmonary disease with (acute) exacerbation; N40.0 Benign prostatic hyperplasia without lower urinary tract symptoms; K21.9 Gastro-esophageal reflux disease without esophagitis; I48.0 Paroxysmal atrial fibrillation; I25.119 Atherosclerotic heart disease of native coronary artery with unspecified angina pectoris; E11.51 Type 2 diabetes mellitus with diabetic peripheral angiopathy without gangrene; E78.5 Hyperlipidemia, unspecified; I10 Essential (primary) hypertension; E66.9 Obesity, unspecified; G47.33 Obstructive sleep apnea (adult) (pediatric); Y83.8 Other surgical procedures as the cause of abnormal reaction of the patient, or of later complication, without mention of misadventure at the time of the procedure; Z95.5 Presence of coronary angioplasty implant and graft; Z79.01 Long term (current) use of anticoagulants; Z79.899 Other long term (current) drug therapy; Z79.84 Long term (current) use of oral hypoglycemic drugs; I25.2 Old myocardial infarction; Z87.891 Personal history of nicotine dependence; Y92.89 Other specified places as the place of occurrence of the external cause; Z68.34 Body mass index [BMI] 34.0-34.9, adult; I65.29 Occlusion and stenosis of unspecified carotid artery
CPT/HCPCS: 93306; 93458; 99291; C9606; 36415; 71045; 71275; 74174; 74176; 80048; 80053; 80061; 80076; 82948; 83036; 83690; 83735; 83880; 84100; 84484; 85025; 85347; 85610; 85730; 87081; 93005; 94760; 97161; 97530; 99152; 99153; A4615; A6213; A6258; A6449; A6590; C1725; C1751; C1760; C1769; C1874; C1892; C1894; C9113; G0378; J0171; J0456; J0461; J0610; J0696; J1170; J1200; J1644; J1815; J2250; J2270; J2405; J3010; J3246; J3475; J3490; J7030; J7040; J7120; Q9967